=== PATIENT | female | born 1995 | race Caucasian/White ===

== ENCOUNTER 2023-09-19 09:00 | Outpatient (RCR) | payer BC, SELFPAY | END 2024-01-17 23:59 | disposition home or self-care (01) | PROVIDERS: PCP Emergency Medicine; Visit Provider Advanced Practice Midwife | DX: M62.89 Other specified disorders of muscle (principal); R27.8 Other lack of coordination; R33.9 Retention of urine, unspecified; R52 Pain, unspecified; Z51.89 Encounter for other specified aftercare | CPT/HCPCS: 97110; 97140; 97162; 97535 ==

== ENCOUNTER 2024-08-11 08:46 | Outpatient (CLI) | payer BC, SELFPAY | END 2024-08-11 08:47 | disposition home or self-care (01) | LOC: FRMREF 08:47 | PROVIDERS: PCP Emergency Medicine; Visit Provider Obstetrics & Gynecology | DX: Z13.1 Encounter for screening for diabetes mellitus (principal); Z13.6 Encounter for screening for cardiovascular disorders | CPT/HCPCS: 80061; 82947 ==